=== PATIENT | male | born 1960 | race African-American/Black ===

== ENCOUNTER 2016-04-17 16:25 | Outpatient (CLI) | payer OTHER ==
[2016-04-17 16:51] LABS: #Basophils 0.1 thou/uL (0.0-0.2); #Eosinphils 0.2 thou/uL (0.0-0.7); #Lymphocytes 3.2 thou/uL (1.20-3.40); #Monocytes 0.5 thou/uL (0.11-0.59); #Neutrophils 4.1 thou/uL (1.40-6.50); %Eosinophils 2.5 % (0.0-10.0); %Monocytes 6.3 % (0.0-10.0); Hematocrit 44.6 % (42.0-52.0); Mean Platelet Volume 7.7 fL (7.4-10.4); Red Blood Cell (RBC) Count 4.48 mill/uL (4.70-6.10); White Blood Cell (WBC) Count 8.1 thou/uL (4.8-10.8)
[2016-04-17 17:03] LABS: ALT (SGPT) 13 U/L (0-55); AST (SGOT) 13 U/L (5-34); Alkaline Phosphatase 79 U/L (40-150); Anion Gap 12 mmol/L (10-20); BUN (Urea Nitrogen) 13 mg/dL (8.4-25.7); Bilirubin, Total 0.5 mg/dL (0.2-1.2); Calc. Creatinine Clearance 0 mL/min (70-130); Calcium 8.9 mg/dL (7.8-10.44); Carbon Dioxide 25 mmol/L (22-29); Chloride 111 mmol/L (98-107); Estimated GFR-MDRD 89; Globulin 2.8 g/dL (2.4-3.5); Protein, Total 6.7 g/dL (6.0-8.3)
[2016-04-18 19:44] LABS: Microalbumin Urine 3.1 mg/dL (0.5-50.0)
== END 2016-04-17 16:26 | disposition home or self-care (01) ==
LOC: HPCALD 16:25
PROVIDERS: ATTEND Family Medicine
DX: E11.9 Type 2 diabetes mellitus without complications (principal)
CPT/HCPCS: 36415; 80053; 82043; 82570; 84443; 85025

== ENCOUNTER 2016-05-09 06:41 | Outpatient (CLI) | payer OTHER ==
[2016-05-09 07:19] LABS: ALT (SGPT) 12 U/L (0-55); AST (SGOT) 13 U/L (5-34); Alkaline Phosphatase 96 U/L (40-150); Bilirubin, Direct 0.2 mg/dL (0.1-0.3); Bilirubin, Total 0.5 mg/dL (0.2-1.2); LDL Cholesterol, Calculated 111 mg/dL; Protein, Total 6.7 g/dL (6.0-8.3)
== END 2016-05-09 06:42 | disposition home or self-care (01) ==
LOC: BURLAB 06:41
PROVIDERS: ATTEND Internal Medicine Cardiovascular Disease
DX: I25.5 Ischemic cardiomyopathy (principal); Z98.61 Coronary angioplasty status
CPT/HCPCS: 36415; 80061; 80076

== ENCOUNTER 2016-05-29 07:00 | Emergency (ER) | payer OTHER | END 2016-05-29 07:59 | disposition home or self-care (01) | LOC: BURERS 07:00 | DX: R42 Dizziness and giddiness (principal); I25.2 Old myocardial infarction; E11.9 Type 2 diabetes mellitus without complications; E78.5 Hyperlipidemia, unspecified; I10 Essential (primary) hypertension; K21.9 Gastro-esophageal reflux disease without esophagitis; F17.210 Nicotine dependence, cigarettes, uncomplicated; Z79.82 Long term (current) use of aspirin; Z79.84 Long term (current) use of oral hypoglycemic drugs; Z79.899 Other long term (current) drug therapy | CPT/HCPCS: 93005 ==

== ENCOUNTER 2016-10-16 19:05 | Emergency (ER) | payer OTHER ==
[~2016-10-16 19:05] MED LIST: Iopamidol 370 76% 100 ML VIAL ONE
[2016-10-16 19:31] LABS: #Basophils 0.2 thou/uL (0.0-0.2); #Eosinphils 0.3 thou/uL (0.0-0.7); #Lymphocytes 4.4 thou/uL (1.20-3.40); #Monocytes 0.7 thou/uL (0.11-0.59); #Neutrophils 4.4 thou/uL (1.40-6.50); %Basophils 2.2 % (0.0-1.0); %Eosinophils 2.8 % (0.0-10.0); %Lymphocytes 44.2 % (21.0-51.0); %Monocytes 6.7 % (0.0-10.0); %Neutrophils 44.1 % (42.0-75.0); Hemoglobin 14.8 g/dL (14.0-18.0); Mean Corpuscular HGB CONC 32.5 g/dL (32.0-36.0); Mean Corpuscular Hemoglobin 31.4 pg (27.0-31.0); Mean Corpuscular Volume 96.8 fl (80.0-94.0); Platelet Count 226 thou/uL (130-400); RBC Distribution Width 13.4 % (11.5-14.5); Red Blood Cell (RBC) Count 4.72 mill/uL (4.70-6.10)
[2016-10-16 19:45] LABS: ALT (SGPT) 15 U/L (8-55); AST (SGOT) 14 U/L (5-34); Albumin 4.2 g/dL (3.5-5.0); Alkaline Phosphatase 93 U/L (40-150); Anion Gap 16 mmol/L (10-20); BUN (Urea Nitrogen) 15 mg/dL (8.4-25.7); Bilirubin, Total 0.5 mg/dL (0.2-1.2); CK (CPK) 324 U/L (30-200); Calc. Creatinine Clearance 0 mL/min (70-130); Carbon Dioxide 21 mmol/L (22-29); Chloride 109 mmol/L (98-107); Estimated GFR-MDRD 52; Globulin 3.4 g/dL (2.4-3.5); Glucose 188 mg/dL (70-105); Magnesium 1.9 mg/dL (1.6-2.6); Potassium 3.7 mmol/L (3.5-5.1); Protein, Total 7.6 g/dL (6.0-8.3); Sodium 142 mmol/L (136-145)
[2016-10-16 19:46] LABS: CKMB 3.3 ng/mL (0-6.6); Troponin I Less than 0.010 ng/mL (< 0.028)
[2016-10-16 19:49] LABS: PTT 27.9 SEC (22.9-36.1)
[2016-10-16 19:50] LABS: D-Dimer Test 0.56 *mcg/mL (0.27-0.43); INR-International Normal Ratio 1.3; Prothrombin Time 16.6 SEC (12.0-14.7)
[2016-10-16] MEDS ORDERED: Enoxaparin Sodium 30 MG/0.3 ML SYRINGE ONE (20:43)
[2016-10-16] MEDS ORDERED: Enoxaparin Sodium 100 MG/ML SYRINGE ONE (20:43)
--- NOTE | 2016-10-16 22:22 | RAD ---
PORTABLE CHEST: Date: 10-16-16 An AP portable film at 1919 is compared with a 09-29-13 study. FINDINGS: The heart is normal in size for an AP film. The lungs are clear. No infiltrate or effusion was prese nt. The trachea was midline. IMPRESSION: No acute thoracic finding. POS: HOME
--- NOTE | 2016-10-17 07:31 | CT ---
PRELIMINARY REPORT/[facility]/EMERGENCY AFTER HOURS PROCEDURE: EXAM: CT Chest With Intravenous Contrast CLINICAL HISTORY: 56 years old, male; Abnormal findings; Abnormal diagnostic tests; Elevated d-dimer; Patient HX: R/O pe, elev didmer TECHNIQUE: Axial computed tomography images of the chest with intravenous contrast. This CT exam was performed using one or more of the following dose reduction techniques: automated exposure control, adjustment of the mA and/or kV according to patient size, and/or use of iterative reconstruction technique. CONTRAST: 92 mL of ISO 370 administered intravenously. COMPARISON: No relevant prior studies available. FINDINGS: Limitations: Suboptimal contrast bolus timing produces under opacification of the pulmonary arteries . This limits evaluation of the smaller, peripheral pulmonary arteries bilaterally. Lungs: Fibrocalcific scarring in the left lung lingula. Breast motion artifact at both lung bases. Pleural space: Unremarkable. No pneumothorax. No significant effusion. Heart: Unremarkable. No cardiomegaly. No significant pericardial effusion. Bones/joints: Degenerative and scoliotic changes of the thoracic spine. No acute fracture. No disloc ation. Soft tissues: See above. Vasculature: Aortic atherosclerosis. Coronary atherosclerosis. Lymph nodes: Unremarkable. No enlarged lymph nodes. IMPRESSION: Suboptimal contrast bolus timing produces under opacification of the pulmonary arteries. This limits evaluation of the smaller, peripheral pulmonary arteries bilaterally. Within the limitations of the study no large or central pulmonary embolism. Thank you for allowing us to participate in the care of your patient. Dictated and Authenticated by: Nico Yeh MD 10/16/2016 9:07 PM Central Time ([place] \T\ [place]) FINAL REPORT CT ANGIO OF THE CHEST: Date: 10-16-[address] of the chest was done a bolus of IV contrast for evaluation of this patient with chest trenton n and shortness of breath. Axial slices were acquire then coronal reconstructions were done. FINDINGS: Unfortunately the timing of the bolus of the contrast is suboptimal. Most of the contrast is in the arterial system rather than the pulmonary arteries. No large central pulmonary emboli were suggested , but medium sized to distal branches would not be evaluated well on this study. There was no sign o f aortic dissection or aneurysm. There is no mediastinal mass or adenopathy. Coronary artery calcifi cations are present, especially in the LAD. There is no pericardial fluid. The lungs are clear excep t for some lingular scarring and minimal dependent atelectasis. There are no effusions. The bony str uctures showed no acute findings. IMPRESSION: 1. Suboptimal study showing no large pulmonary emboli centrally, but the sensitivity of this study i s very low beyond the largest arteries. 2. Coronary artery calcifications. Report in agreement with the preliminary reading by DWIGHT. POS: HOME
== END 2016-10-16 21:13 | disposition short-term general hospital (02) ==
LOC: BURERS 19:05
DX: R09.02 Hypoxemia (principal); R06.00 Dyspnea, unspecified; I25.2 Old myocardial infarction; I10 Essential (primary) hypertension; I25.10 Atherosclerotic heart disease of native coronary artery without angina pectoris; E11.9 Type 2 diabetes mellitus without complications; E78.5 Hyperlipidemia, unspecified; K21.9 Gastro-esophageal reflux disease without esophagitis; F17.210 Nicotine dependence, cigarettes, uncomplicated
CPT/HCPCS: 71010; 71275; 80053; 82553; 83735; 83880; 84484; 85025; 85379; 85610; 85730; 93005; 94760; 96360; 96372; A4216; J1650; J7620

== ENCOUNTER 2016-10-25 16:34 | Outpatient (CLI) | payer OTHER | END 2016-10-25 16:35 | disposition home or self-care (01) | LOC: HPCALD 16:34 | PROVIDERS: ATTEND Family Medicine | DX: R05 Cough (principal) | CPT/HCPCS: 36415; 83880 ==

== ENCOUNTER 2016-10-25 16:44 | Outpatient (CLI) | payer OTHER ==
--- NOTE | 2016-10-25 21:38 | RAD ---
CHEST TWO VIEWS 10/25/16 Comparison is made with the 10/16/16 study. The heart seems normal in size today. There is no vascular congestion, edema, or pleural effusion. N o focal pulmonary infiltrate was appreciated. While there is perhaps a little retrocardiac streaking , I do not see anything on the other views to confirm an infiltrate. IMPRESSION: No definite acute finding. POS: HOME
== END 2016-10-25 16:45 | disposition home or self-care (01) ==
LOC: BURRAD 16:44
PROVIDERS: ATTEND Family Medicine
DX: R05 Cough (principal)
CPT/HCPCS: 36415; 71020; 83880

== ENCOUNTER 2017-07-27 08:38 | Emergency (ER) | payer OTHER ==
[2017-07-27] MEDS ORDERED: Fentanyl 100 MCG/2 ML VIAL ONE (09:19)
[2017-07-27 09:21] LABS: #Basophils 0.1 thou/uL (0.0-0.2); #Eosinphils 0.2 thou/uL (0.0-0.7); #Lymphocytes 2.3 thou/uL (1.20-3.40); #Monocytes 0.6 thou/uL (0.11-0.59); #Neutrophils 6.9 thou/uL (1.40-6.50); %Lymphocytes 22.4 % (21.0-51.0); %Monocytes 6.3 % (0.0-10.0); %Neutrophils 68.3 % (42.0-75.0); Hemoglobin 13.7 g/dL (14.0-18.0); Mean Corpuscular HGB CONC 32.5 g/dL (32.0-36.0); Mean Corpuscular Volume 92.3 fl (80.0-94.0); Mean Platelet Volume 7.5 fL (7.4-10.4); Platelet Count 195 thou/uL (130-400); RBC Distribution Width 13.3 % (11.5-14.5); Red Blood Cell (RBC) Count 4.59 mill/uL (4.70-6.10)
[2017-07-27 09:29] LABS: ALT (SGPT) 11 U/L (8-55); AST (SGOT) 11 U/L (5-34); Albumin 3.6 g/dL (3.5-5.0); Alkaline Phosphatase 71 U/L (40-150); Anion Gap 14 mmol/L (10-20); BUN (Urea Nitrogen) 10 mg/dL (8.4-25.7); Bilirubin, Total 0.9 mg/dL (0.2-1.2); Calc. Creatinine Clearance 0 mL/min (70-130); Calcium 8.6 mg/dL (7.8-10.44); Carbon Dioxide 25 mmol/L (22-29); Chloride 103 mmol/L (98-107); Estimated GFR-MDRD Greater than 90; Globulin 3.2 g/dL (2.4-3.5); Glucose 185 mg/dL (70-105); Protein, Total 6.8 g/dL (6.0-8.3); Sodium 138 mmol/L (136-145)
== END 2017-07-27 10:30 | disposition home or self-care (01) ==
LOC: BURERS 08:38
DX: L02.415 Cutaneous abscess of right lower limb (principal); I25.2 Old myocardial infarction; E11.9 Type 2 diabetes mellitus without complications; I25.10 Atherosclerotic heart disease of native coronary artery without angina pectoris; K21.9 Gastro-esophageal reflux disease without esophagitis; F17.210 Nicotine dependence, cigarettes, uncomplicated; Z79.82 Long term (current) use of aspirin; Z79.899 Other long term (current) drug therapy; Z79.891 Long term (current) use of opiate analgesic
CPT/HCPCS: 10061; 80053; 83605; 85025; 96374; J3010

== ENCOUNTER 2017-07-29 09:22 | Emergency (ER) | payer OTHER | END 2017-07-29 09:41 | disposition home or self-care (01) | LOC: BURERS 09:22 | DX: Z48.817 Encounter for surgical aftercare following surgery on the skin and subcutaneous tissue (principal); I25.10 Atherosclerotic heart disease of native coronary artery without angina pectoris; I25.2 Old myocardial infarction; E11.9 Type 2 diabetes mellitus without complications; E78.5 Hyperlipidemia, unspecified; I10 Essential (primary) hypertension; K21.9 Gastro-esophageal reflux disease without esophagitis; F17.210 Nicotine dependence, cigarettes, uncomplicated; Z79.84 Long term (current) use of oral hypoglycemic drugs; Z79.82 Long term (current) use of aspirin; Z79.899 Other long term (current) drug therapy | CPT/HCPCS: 99282 ==

== ENCOUNTER 2017-12-17 14:38 | Outpatient (CLI) | payer OTHER ==
--- NOTE | 2017-12-17 20:37 | RAD ---
LEFT SHOULDER THREE VIEWS: 12/17/2017 FINDINGS: No fracture, dislocation, or AC joint widening is seen. The visible adjacent ribs appear intact. IMPRESSION: No significant findings. POS: HOME
--- NOTE | 2017-12-17 20:37 | RAD ---
RIGHT SHOULDER THREE VIEWS: 12/17/2017 FINDINGS: No acute fracture is seen. There is a little irregularity of the inferior lip of the glenoid fossa, which could be from a prior injury or prior dislocation. The AC joint is normal in width and shows n o offset. The visible adjacent ribs appear intact. IMPRESSION: No acute findings. Possible old trauma along the inferior rim of the glenoid fossa. POS: HOME
== END 2017-12-17 14:39 | disposition home or self-care (01) ==
LOC: BURRAD 14:38
PROVIDERS: ATTEND Family Medicine
DX: M25.511 Pain in right shoulder (principal); M25.512 Pain in left shoulder

== ENCOUNTER 2018-05-20 11:22 | Emergency (ER) | payer OTHER | END 2018-05-20 12:30 | disposition home or self-care (01) | LOC: BURERS 11:22 | DX: J06.9 Acute upper respiratory infection, unspecified (principal); I25.10 Atherosclerotic heart disease of native coronary artery without angina pectoris; I25.2 Old myocardial infarction; E11.9 Type 2 diabetes mellitus without complications; E78.5 Hyperlipidemia, unspecified; I10 Essential (primary) hypertension; F17.210 Nicotine dependence, cigarettes, uncomplicated; Z79.899 Other long term (current) drug therapy; Z79.891 Long term (current) use of opiate analgesic; Z79.84 Long term (current) use of oral hypoglycemic drugs | CPT/HCPCS: 87804; 99283 ==

== ENCOUNTER 2018-12-24 07:30 | Emergency (ER) | payer OTHER ==
[2018-12-24] MEDS ORDERED: Lidocaine 1% PF 5 ML VIAL ONE (08:00)
[2018-12-24] MEDS ORDERED: Adacel (T-DAP) 0.5 ML SYRINGE ONE (08:25)
== END 2018-12-24 08:44 | disposition home or self-care (01) ==
LOC: BURERS 07:30
DX: L02.31 Cutaneous abscess of buttock (principal); I25.10 Atherosclerotic heart disease of native coronary artery without angina pectoris; I25.2 Old myocardial infarction; E11.9 Type 2 diabetes mellitus without complications; E78.5 Hyperlipidemia, unspecified; I10 Essential (primary) hypertension; F17.210 Nicotine dependence, cigarettes, uncomplicated; Z79.84 Long term (current) use of oral hypoglycemic drugs; Z79.899 Other long term (current) drug therapy; Z23 Encounter for immunization
CPT/HCPCS: 10060; 90471; 90715; J2001

== ENCOUNTER 2018-12-30 19:02 | Emergency (ER) | payer OTHER ==
[2018-12-30] MEDS ORDERED: Heparin 10,000 UNITS/ 10 ML VIAL SLOW IVP ONE (19:03)
[2018-12-30 19:18] LABS: #Basophils 0.2 thou/uL (0.0-0.2); #Eosinphils 0.4 thou/uL (0.0-0.7); #Lymphocytes 3.9 thou/uL (1.20-3.40); #Monocytes 0.7 thou/uL (0.11-0.59); #Neutrophils 6.2 thou/uL (1.40-6.50); %Basophils 1.6 % (0.0-1.0); %Eosinophils 3.3 % (0.0-10.0); %Lymphocytes 34.2 % (21.0-51.0); %Neutrophils 54.9 % (42.0-75.0); Hemoglobin 15.1 g/dL (14.0-18.0); Mean Corpuscular HGB CONC 31.1 g/dL (32.0-36.0); Mean Corpuscular Hemoglobin 29.9 pg (27.0-31.0); Mean Corpuscular Volume 96.3 fL (78.0-98.0); Mean Platelet Volume 7.2 fL (7.4-10.4); Platelet Count 271 thou/uL (130-400); RBC Distribution Width 13.7 % (11.5-14.5); Red Blood Cell (RBC) Count 5.05 mill/uL (4.70-6.10); White Blood Cell (WBC) Count 11.3 thou/uL (4.8-10.8)
[2018-12-30 19:24] LABS: INR-International Normal Ratio 1.2; PTT 28.4 SEC (22.9-36.1); Prothrombin Time 15.6 SEC (12.0-14.7)
[2018-12-30 19:36] LABS: ALT (SGPT) 19 U/L (8-55); AST (SGOT) 18 U/L (5-34); Albumin 4.3 g/dL (3.5-5.0); Alkaline Phosphatase 92 U/L (40-110); Anion Gap 18 mmol/L (10-20); BUN (Urea Nitrogen) 15 mg/dL (8.4-25.7); Bilirubin, Total 0.3 mg/dL (0.2-1.2); CK (CPK) 505 U/L (30-200); Calc. Creatinine Clearance 0 mL/min (70-130); Calcium 9.5 mg/dL (7.8-10.44); Carbon Dioxide 25 mmol/L (22-29); Chloride 101 mmol/L (98-107); Estimated GFR-MDRD 62; Globulin 3.9 g/dL (2.4-3.5); Glucose 152 mg/dL (70-105); Magnesium 1.6 mg/dL (1.6-2.6); Potassium 3.4 mmol/L (3.5-5.1); Protein, Total 8.2 g/dL (6.0-8.3); Sodium 141 mmol/L (136-145)
[2018-12-30] MEDS ORDERED: Heparin 25,000 units/D5W 500 ML ONE (19:52)
[2018-12-30] MEDS ORDERED: Heparin 5,000 UNITS/ML VIAL ONE (19:52)
[2018-12-30] MEDS ORDERED: Tenecteplase 50 MG - STEMI KIT ONE (19:53)
[2018-12-30] MEDS ORDERED: Aspirin Chewable 81 MG TAB ONE (19:53)
[2018-12-30] MEDS ORDERED: Nitroglycerin 0.4 MG TAB 1 EACH ONE (20:05)
--- NOTE | 2018-12-30 20:30 | RAD ---
FRONTAL RADIOGRAPH CHEST: Date: 12-30-18 Comparison: 10-25-16 History: Chest pain, myocardial infarction. FINDINGS: There is no pneumothorax, pleural fluid, lobar consolidation or alveolar edema. IMPRESSION: No focal consolidation or alveolar edema. POS: [facility]
== END 2018-12-30 19:40 | disposition short-term general hospital (02) ==
LOC: BURERS 19:02
DX: I21.09 ST elevation (STEMI) myocardial infarction involving other coronary artery of anterior wall (principal); I25.10 Atherosclerotic heart disease of native coronary artery without angina pectoris; I25.2 Old myocardial infarction; E11.9 Type 2 diabetes mellitus without complications; I10 Essential (primary) hypertension; F17.210 Nicotine dependence, cigarettes, uncomplicated
CPT/HCPCS: 71045; 80053; 82550; 83605; 83735; 83880; 84443; 84484; 85025; 85610; 85730; 93005; 96365; 96375; J1644; J3101

== ENCOUNTER 2019-05-05 08:23 | Emergency (ER) | payer OTHER | END 2019-05-05 08:51 | disposition home or self-care (01) | LOC: BURERS 08:23 | DX: J06.9 Acute upper respiratory infection, unspecified (principal); I10 Essential (primary) hypertension; I25.10 Atherosclerotic heart disease of native coronary artery without angina pectoris; I25.2 Old myocardial infarction; E11.9 Type 2 diabetes mellitus without complications; E78.5 Hyperlipidemia, unspecified; F17.210 Nicotine dependence, cigarettes, uncomplicated; Z79.84 Long term (current) use of oral hypoglycemic drugs; Z79.899 Other long term (current) drug therapy | CPT/HCPCS: 99283 ==

== ENCOUNTER 2019-11-17 10:20 | Emergency (ER) | payer OTHER ==
[2019-11-17] MEDS ORDERED: diphenhydrAMINE 50 MG/ML VIAL ONE (10:42)
[2019-11-17] MEDS ORDERED: diphenhydrAMINE 25 MG CAP ONE (10:43)
== END 2019-11-17 10:44 | disposition home or self-care (01) ==
LOC: BURERS 10:20
DX: T63.441A Toxic effect of venom of bees, accidental (unintentional), initial encounter (principal); I25.10 Atherosclerotic heart disease of native coronary artery without angina pectoris; I25.2 Old myocardial infarction; E11.9 Type 2 diabetes mellitus without complications; E78.5 Hyperlipidemia, unspecified; I10 Essential (primary) hypertension; F17.210 Nicotine dependence, cigarettes, uncomplicated; Z79.899 Other long term (current) drug therapy; Z79.84 Long term (current) use of oral hypoglycemic drugs
CPT/HCPCS: 99282; J1200; Q0163

== ENCOUNTER 2020-01-11 10:41 | Emergency (ER) | payer OTHER ==
[2020-01-11 11:35] LABS: #Basophils 0.1 thou/uL (0.0-0.2); #Eosinphils 0.2 thou/uL (0.0-0.7); #Lymphocytes 2.5 thou/uL (1.20-3.40); #Monocytes 0.3 thou/uL (0.11-0.59); #Neutrophils 3.9 thou/uL (1.40-6.50); %Basophils 1.2 % (0.0-1.0); %Eosinophils 2.5 % (0.0-10.0); %Lymphocytes 36.4 % (21.0-51.0); %Monocytes 4.3 % (0.0-10.0); %Neutrophils 55.7 % (42.0-75.0); Hemoglobin 14.6 g/dL (14.0-18.0); Mean Corpuscular HGB CONC 30.3 g/dL (32.0-36.0); Mean Corpuscular Hemoglobin 30.1 pg (27.0-31.0); Mean Corpuscular Volume 99.2 fL (78.0-98.0); Mean Platelet Volume 7.8 fL (7.4-10.4); Platelet Count 209 thou/uL (130-400); RBC Distribution Width 15.1 % (11.5-14.5); Red Blood Cell (RBC) Count 4.87 mill/uL (4.70-6.10); White Blood Cell (WBC) Count 6.9 thou/uL (4.8-10.8)
[2020-01-11 11:39] LABS: ALT (SGPT) 13 U/L (8-55); AST (SGOT) 10 U/L (5-34); Albumin 3.7 g/dL (3.5-5.0); Alkaline Phosphatase 83 U/L (40-110); Anion Gap 11 mmol/L (10-20); BUN (Urea Nitrogen) 14 mg/dL (8.4-25.7); Bilirubin, Total 0.6 mg/dL (0.2-1.2); Calc. Creatinine Clearance 0 mL/min (70-130); Calcium 8.5 mg/dL (7.8-10.44); Carbon Dioxide 29 mmol/L (22-29); Chloride 104 mmol/L (98-107); Estimated GFR-MDRD 90; Globulin 3.4 g/dL (2.4-3.5); Glucose 136 mg/dL (70-105); Lipase 14 U/L (8-78); Potassium 4.1 mmol/L (3.5-5.1); Protein, Total 7.1 g/dL (6.0-8.3); Sodium 140 mmol/L (136-145)
[2020-01-11] MEDS ORDERED: Lidocaine Viscous Sol 2% 15 ml UD Cup ONE (12:42)
[2020-01-11] MEDS ORDERED: Mag-Al Plus 1200 MG/1200 MG/120 MG/30 ML UDCUP ONE (12:42)
--- NOTE | 2020-01-11 13:02 | CT ---
CT ABDOMEN AND PELVIS WITHOUT CONTRAST: Date: 01/11/[address] of the abdomen and pelvis was performed for evaluation of abdominal pain. The lung bases are clear. The liver, spleen, pancreas, gallbladder, adrenal glands, kidneys, and abdo david aorta were unremarkable within the limitations of a noncontrast study. There is a moderate amount of gas in the stomach and in the transverse colon, but current bowel gas p attern does not suggest martínez obstruction. There is no dilation of small bowel or remaining parts of the colon. No intestinal wall thickening was seen, nor were there inflammatory changes around bowel. The appendix appears normal. No free air or free fluid detected. CT of the pelvis shows no pelvic masses, fluid collections, or inflammatory changes. Sigmoid divertic ulosis without diverticulitis was seen, as well as a few scattered diverticula in the left colon. Deg enerative disc disease is present in the lower lumbar spine. IMPRESSION: 1. Some mild gaseous distention of the stomach and transverse colon, but no evidence of obstruction or other acute intestinal abnormality. 2. Mild diverticulosis, left colon. Findings discussed with Dr. Georges at 1217 hours on 01/11/2020. CODE CR. POS: HOME
--- NOTE | 2020-01-11 13:03 | RAD ---
ABDOMEN: Date: 01/11/2020 Supine views of the abdomen show mild increase in amount of gas in the stomach and transverse colon, but there is no organization to loops to suggest obstruction. No calcifications of concern were seen. The bony structures showed no acute change. IMPRESSION: Nonspecific abdominal findings POS: HOME
== END 2020-01-11 12:47 | disposition home or self-care (01) ==
LOC: BURERS 10:41
DX: R14.3 Flatulence (principal); I25.2 Old myocardial infarction; E11.9 Type 2 diabetes mellitus without complications; E78.5 Hyperlipidemia, unspecified; I10 Essential (primary) hypertension; F17.210 Nicotine dependence, cigarettes, uncomplicated; Z79.899 Other long term (current) drug therapy
CPT/HCPCS: 36415; 74018; 74176; 80053; 83690; 84484; 85025

== ENCOUNTER 2020-12-17 14:49 | Emergency (ER) | payer OTHER ==
[2020-12-17] MEDS ORDERED: Morphine 4 MG/ML VIAL ONE (15:47)
== END 2020-12-17 16:45 | disposition home or self-care (01) ==
LOC: BURERS 14:49
DX: L02.416 Cutaneous abscess of left lower limb (principal); I25.10 Atherosclerotic heart disease of native coronary artery without angina pectoris; I25.2 Old myocardial infarction; E11.9 Type 2 diabetes mellitus without complications; E78.5 Hyperlipidemia, unspecified; I10 Essential (primary) hypertension; F17.210 Nicotine dependence, cigarettes, uncomplicated; Z79.84 Long term (current) use of oral hypoglycemic drugs; Z79.899 Other long term (current) drug therapy
CPT/HCPCS: 10060; 96372; J2270

== ENCOUNTER 2021-09-13 15:27 | Emergency (ER) | payer OTHER ==
[2021-09-13] MEDS ORDERED: Iopamidol 370 76% 100 ML VIAL FS ONE (15:28)
[2021-09-13] MEDS ORDERED: Mag-Al Plus 1200 MG/1200 MG/120 MG/30 ML UDCUP ONE (15:54)
[2021-09-13] MEDS ORDERED: Lidocaine Viscous Sol 2% 15 ml UD Cup ONE (15:54)
[2021-09-13 16:19] LABS: ALT (SGPT) 13 U/L (8-55); AST (SGOT) 13 U/L (5-34); Albumin 3.7 g/dL (3.5-5.0); Alkaline Phosphatase 73 U/L (40-110); Anion Gap 13 mmol/L (10-20); BUN (Urea Nitrogen) 13 mg/dL (8.4-25.7); Bilirubin, Total 0.4 mg/dL (0.2-1.2); Calc. Creatinine Clearance 0 mL/min (70-130); Calcium 8.6 mg/dL (7.8-10.44); Carbon Dioxide 28 mmol/L (22-29); Chloride 108 mmol/L (98-107); Estimated GFR 85; Globulin 2.9 g/dL (2.4-3.5); Glucose 160 mg/dL (70-105); Lipase 8 U/L (8-78); Potassium 3.7 mmol/L (3.5-5.1); Protein, Total 6.6 g/dL (6.0-8.3); Sodium 145 mmol/L (136-145)
[2021-09-13 16:23] LABS: Eosinophils 3 % (0-10); Hemoglobin 13.5 g/dL (14.0-18.0); Lymphocytes 33 % (21-51); MDiff Complete? YES; Mean Corpuscular HGB CONC 32.1 g/dL (32.0-36.0); Mean Corpuscular Hemoglobin 31.6 pg (27.0-31.0); Mean Corpuscular Volume 98.5 fL (78.0-98.0); Mean Platelet Volume 7.4 fL (7.4-10.4); Monocytes 1 % (0-10); Neutrophil 63 % (42-75); Platelet Count 199 thou/uL (130-400); RBC Distribution Width 14.2 % (11.5-14.5); Red Blood Cell (RBC) Count 4.29 mill/uL (4.70-6.10); White Blood Cell (WBC) Count 9.1 thou/uL (4.8-10.8)
[2021-09-13] MEDS ORDERED: Aspirin Chewable 81 MG TAB ONE (16:31)
[2021-09-13 16:37] LABS: CKMB 4.1 ng/mL (0-6.6)
[2021-09-13] MEDS ORDERED: Enoxaparin Sodium 100 MG/ML SYRINGE ONE (19:59)
[2021-09-13] MEDS ORDERED: Nitroglycerin 0.4 MG TAB 1 EACH ONE (20:22)
[2021-09-13] MEDS ORDERED: Nicotine 14 MG PATCH TOP SCH (22:30)
[2021-09-13 22:53] LABS: CKMB 3.8 ng/mL (0-6.6)
== END 2021-09-13 23:13 | disposition short-term general hospital (02) ==
LOC: BURERS 15:27
DX: R10.13 Epigastric pain (principal); R77.8 Other specified abnormalities of plasma proteins; I25.10 Atherosclerotic heart disease of native coronary artery without angina pectoris; I25.2 Old myocardial infarction; E11.9 Type 2 diabetes mellitus without complications; E78.5 Hyperlipidemia, unspecified; I10 Essential (primary) hypertension; F17.210 Nicotine dependence, cigarettes, uncomplicated; Z79.899 Other long term (current) drug therapy; Z79.84 Long term (current) use of oral hypoglycemic drugs
CPT/HCPCS: 36415; 74177; 80053; 82553; 83690; 84484; 85025; 93005; 94760; 96360; 96372; J1650; Q9967

== ENCOUNTER 2021-12-18 13:24 | Emergency (ER) | payer OTHER | END 2021-12-18 13:53 | disposition home or self-care (01) | LOC: BURERS 13:24 | DX: K92.1 Melena (principal); E11.9 Type 2 diabetes mellitus without complications; E78.5 Hyperlipidemia, unspecified; I10 Essential (primary) hypertension; Z79.84 Long term (current) use of oral hypoglycemic drugs; Z79.02 Long term (current) use of antithrombotics/antiplatelets; Z79.899 Other long term (current) drug therapy; F17.210 Nicotine dependence, cigarettes, uncomplicated | CPT/HCPCS: 99283 ==

== ENCOUNTER 2022-03-26 22:41 | Emergency (ER) | payer OTHER ==
[2022-03-26] MEDS ORDERED: Ibuprofen 200 MG TAB ONE (23:34)
[2022-03-26] MEDS ORDERED: Doxycycline 100 MG CAP ONE (23:34)
[2022-03-26] MEDS ORDERED: Acetaminophen/Codeine 30-300mg Tablet ONE (23:34)
[2022-03-26] MEDS ORDERED: Boostrix 0.5 ML (Tdap) VIAL (>/=7 yrs of age) ONE (23:34)
== END 2022-03-26 23:45 | disposition home or self-care (01) ==
LOC: BURERS 22:41
DX: L02.31 Cutaneous abscess of buttock (principal); I25.10 Atherosclerotic heart disease of native coronary artery without angina pectoris; I25.2 Old myocardial infarction; E11.9 Type 2 diabetes mellitus without complications; I10 Essential (primary) hypertension; E78.5 Hyperlipidemia, unspecified; F17.210 Nicotine dependence, cigarettes, uncomplicated; Z79.02 Long term (current) use of antithrombotics/antiplatelets; Z79.899 Other long term (current) drug therapy; Z79.84 Long term (current) use of oral hypoglycemic drugs; Z23 Encounter for immunization
CPT/HCPCS: 10060; 87070; 87205; 90471; 90715

== ENCOUNTER 2022-03-27 16:32 | Emergency (ER) | payer OTHER | END 2022-03-27 17:13 | disposition home or self-care (01) | LOC: BURERS 16:32 | DX: Z48.00 Encounter for change or removal of nonsurgical wound dressing (principal); I25.10 Atherosclerotic heart disease of native coronary artery without angina pectoris; E11.9 Type 2 diabetes mellitus without complications; I10 Essential (primary) hypertension; E78.5 Hyperlipidemia, unspecified; Z79.84 Long term (current) use of oral hypoglycemic drugs; Z79.899 Other long term (current) drug therapy | CPT/HCPCS: 99282 ==

== ENCOUNTER 2022-03-29 16:44 | Emergency (ER) | payer OTHER | END 2022-03-29 17:10 | disposition home or self-care (01) | LOC: BURERS 16:44 | DX: Z48.817 Encounter for surgical aftercare following surgery on the skin and subcutaneous tissue (principal); I25.10 Atherosclerotic heart disease of native coronary artery without angina pectoris; E11.9 Type 2 diabetes mellitus without complications; I10 Essential (primary) hypertension; E78.5 Hyperlipidemia, unspecified; F17.210 Nicotine dependence, cigarettes, uncomplicated | CPT/HCPCS: 99282 ==

== ENCOUNTER 2023-01-06 05:25 | Emergency (ER) | payer OTHER | END 2023-01-06 05:56 | disposition home or self-care (01) | LOC: BURERS 05:25 | DX: M54.6 Pain in thoracic spine (principal); M25.512 Pain in left shoulder; E11.9 Type 2 diabetes mellitus without complications; I10 Essential (primary) hypertension; I48.91 Unspecified atrial fibrillation; F17.210 Nicotine dependence, cigarettes, uncomplicated; E78.5 Hyperlipidemia, unspecified; Z79.84 Long term (current) use of oral hypoglycemic drugs; Z79.899 Other long term (current) drug therapy | CPT/HCPCS: 99283 ==

== ENCOUNTER 2024-10-26 08:16 | Emergency (ER) | payer MEDICAID ==
[2024-10-26 08:43] LABS: #Basophils 0.1 thou/uL (0.0-0.2); #Eosinophils 0.2 thou/uL (0.0-0.7); #Lymphocytes 1.8 thou/uL (1.20-3.40); #Monocytes 0.5 thou/uL (0.11-0.59); #Neutrophils 4.0 thou/uL (1.40-6.50); %Basophils 1.8 % (0.0-1.0); %Eosinophils 2.6 % (0.0-10.0); %Lymphocytes 27.8 % (21.0-51.0); %Monocytes 7.2 % (0.0-10.0); %Neutrophils 60.6 % (42.0-75.0); Hematocrit 44.3 % (42.0-52.0); Hemoglobin 14.6 g/dL (14.0-18.0); Mean Corpuscular Hemoglobin 31.8 pg (27.0-31.0); Mean Corpuscular Volume 96.7 fl (78.0-98.0); Platelet Count 250 10x3/uL (130-400); Red Blood Cell (RBC) Count 4.58 mill/uL (4.70-6.10); White Blood Cell (WBC) Count 6.6 10x3/uL (4.8-10.8)
[2024-10-26 08:55] LABS: ALT (SGPT) 7 U/L (Less than 45); AST (SGOT) 17 U/L (11-34); Albumin 3.7 g/dL (3.1-4.5); Alkaline Phosphatase 73 U/L (40-110); Anion Gap 16 mmol/L (10-20); BUN (Urea Nitrogen) 10 mg/dL (8.4-25.7); Bilirubin, Total 0.3 mg/dL (0.3-1.2); Calc. Creatinine Clearance 0 mL/min (70-130); Calcium 8.6 mg/dL (7.8-10.44); Carbon Dioxide 22 mmol/L (23-31); Chloride 108 mmol/L (98-107); Globulin 3.3 g/dL (2.4-3.5); Glucose 112 mg/dL (80-115); Lipase 6 U/L (8-78); Potassium 3.8 mmol/L (3.5-5.1); Sodium 142 mmol/L (136-145); Troponin I 0.010 ng/mL (< 0.028)
[2024-10-26] MEDS ORDERED: Simethicone Chewable 80 MG TAB ONE (09:00)
[2024-10-26] MEDS ORDERED: Lidocaine Viscous Sol 2% 15 ml UD Cup ONE (09:00)
[2024-10-26] MEDS ORDERED: Mag-Al 1200 mg/1200 mg/30 ML UDCUP ONE (09:00)
== END 2024-10-26 09:35 | disposition home or self-care (01) ==
LOC: BURERS 08:16
DX: R14.1 Gas pain (principal); J30.9 Allergic rhinitis, unspecified; K62.5 Hemorrhage of anus and rectum; I25.10 Atherosclerotic heart disease of native coronary artery without angina pectoris; I25.2 Old myocardial infarction; E11.9 Type 2 diabetes mellitus without complications; E78.5 Hyperlipidemia, unspecified; I10 Essential (primary) hypertension; F17.210 Nicotine dependence, cigarettes, uncomplicated; Z79.02 Long term (current) use of antithrombotics/antiplatelets; Z79.84 Long term (current) use of oral hypoglycemic drugs; Z79.82 Long term (current) use of aspirin; Z79.899 Other long term (current) drug therapy
CPT/HCPCS: 80053; 83690; 83880; 84484; 85025; 93005; 99284